=== PATIENT | female | born 1955 | race Caucasian/White ===

== ENCOUNTER 2019-08-14 12:43 | Day surgery (SDC) | payer OTHER ==
[2019-08-13 10:56] VITALS: BMI 21.2
--- NOTE | 2019-08-14 11:33 | HP ---
[facility]ellite [facility] - Chief Complaint Chief Complaint: left hand pain/numbness - Past Medical History Allergies/Adverse Reactions: Allergies Allergy/AdvReac Type Severity Reaction Status Date / Time No Known Allergies Allergy Verified 08/13/19 10:56 - Current Medications Current Medications: Home Medications Medication Instructions Recorded Anastrozole [Arimidex] 1 mg PO DAILY 08/13/19 Doxepin HCl [Silenor] 6 mg PO PRN 08/13/19 Lorazepam [Ativan] 1 mg PO PRN 08/13/19 Satellite Physical Exam - Physical Examination General Appearance: Well Nourished, Well Developed, Alert & Oriented x3 ENT: Clear Lung: Normal air movement Extremities: Other (left hand/elbow, + tinels, + phalens, EMG + cubital tunnel and CTS) Neurological: Intact, Alert, Oriented Satellite Impression/Plan - Impression/Plan Impression: left CTS, cubital tunnel syndrome Operative Procedure: left ctr, ulna nerve transposition Date to be Performed: 08/14/19
[2019-08-14] MEDS ORDERED: ceFAZolin SODIUM 1 GM VIAL IVPB ONE (14:10)
[2019-08-14] MEDS ORDERED: MIDAZOLAM HCL 2 MG/2 ML SINGLE DOSE VIAL ONE (14:15)
[2019-08-14] MEDS ORDERED: PROPOFOL 20 ML ONE ×2 (15:00)
--- NOTE | 2019-08-14 15:38 | OP ---
Operative Note - Note: Operative Date: 08/14/19 ([facility]) Pre-Operative Diagnosis: left cts, cubital tunnel syndrome Operation: left ctr, tenosynovectomy, subcutaneous ulna nerve transposition Post-Operative Diagnosis: Same as Pre-op Surgeon: Ruben Lujan Shooter Helper: Juan Curry Anesthesia: General, Local Specimens Removed: tenosynovium Estimated Blood Loss (mls): 0 (tourniquet)
[2019-08-14] MEDS ORDERED: ONDANSETRON 4 MG/2 ML VIAL IVPUSH PRN (15:39)
[2019-08-14] MEDS ORDERED: oxyCODONE HCL 5 MG TABLET PO PRN (15:39)
[2019-08-14] MEDS ORDERED: LACTATED RINGERS SOLUTION 1,000 ML IV SCH (15:45)
--- NOTE | 2019-08-14 16:17 | SPEC ---
DATE OF OPERATION: 08/14/2019 PREOPERATIVE DIAGNOSIS: Severe end-stage left cubital tunnel syndrome and mild carpal tunnel syndrome. POSTOPERATIVE DIAGNOSIS: Severe end-stage left cubital tunnel syndrome and mild carpal tunnel syndrome. SURGEON: Charles Dean MD SENIOR PLANNER: TRENT Bruce PROCEDURE: Left subcutaneous ulnar nerve transposition, carpal tunnel release, and tenosynovectomy. ANESTHESIA: Alma Paz, LEENAN, deep MAC anesthesia, local injection of 20 mL 0.5% Marcaine, 1% lidocaine mix. DRAINS: None. COMPLICATIONS: None. SPECIMENS: Tenosynovium, left wrist. ESTIMATED BLOOD LOSS: None. BLOOD GIVEN: None. FLUID REPLACEMENT: 1000 mL Plasma-Lyte. INDICATION FOR PROCEDURE: This patient is a 64-year-old female with a preoperative diagnosis of severe end-stage cubital tunnel syndrome and mild left carpal tunnel syndrome. After understanding the potential risks, complications, alternatives, and benefits to surgery versus nonsurgical treatment, the patient elected to undergo this procedure. She understands she will not get complete relief of her symptoms. She will still have some continuation of some of her symptoms including numbness, weakness, atrophy, tingling, pins and needles, etc. DESCRIPTION OF PROCEDURE: The patient was brought to the operating room, peripheral IV placed and intravenous sedation was given. One gram of intravenous Ancef was given. MAC anesthesia was induced. A tourniquet was applied to the left upper arm and the left upper extremity was prepped and draped in sterile fashion. The entire case was done under 3.8 loupe magnification. A marking pen was utilized to jessi out a longitudinal incision in an already existing skin crease. Twenty mL of 0.5% Marcaine mixed with 1% Lidocaine was injected in and around the surgical incision. The left upper extremity was elevated, exsanguinated with an Esmarch bandage and the tourniquet inflated to 250 mmHg. A No. 15 scalpel blade was utilized to cut down through the skin. Subcutaneous hemostasis was achieved with the bipolar cautery. Dissection was done through the superficial palmar fascia. Self-retaining retractors were placed into the wound. Under direct visualization, the transverse carpal ligament was transected with a No. 15 scalpel blade, exposing the median nerve and the contents of the carpal tunnel. The distal and proximal extents of the release were completed with a Littler scissor and checked with irrigation and my small finger. They were seen to be complete. Limited dissection was done on the radial side of the median nerve and more extensive dissection was done on the ulnar side of the median nerve. The patients nerve was seen to be quite compressed by epineurium and therefore a limited epineurotomy was performed. A Ragnell retractor was used to gently retract the median nerve in a radial direction. The patient had a lot of tenosynovitis and therefore a tenosynovectomy was performed off all 9 flexor tendons. This was passed off the field as tenosynovium left wrist. The floor of the carpal tunnel was checked. There were no abnormal masses or ganglion cysts. The area was copiously irrigated and washed out and closure begun. Undyed 4-0 Vicryl was used to close the deep dermal layer. Final skin reapproximation was done with horizontal mattress 4-0 nylon sutures. The area was then washed and dried, covered with Xeroform, 4 x 4s, fluffs between the fingers, Webril and a 4-inch plaster roll was utilized to make a volar splint, which was then wrapped with Joseluis and Coban. There were no complications during the case. That took 15 minutes. The entire case was done under 3.8 loupe magnification. A marking pen was utilized to jessi out a longitudinal incision in an already existing skin crease. Twenty mL of 0.5% Marcaine mixed with 1% Lidocaine were injected in and around the surgical incision. The right upper extremity was elevated, exsanguinated with an Esmarch bandage, and the tourniquet inflated to 250 mmHg. A No. 15 scalpel blade was utilized to cut down through the skin. Subcutaneous hemostasis was achieved with the bipolar cautery. Dissection was done through the superficial palmar fascia. Self-retaining retractors were placed into the wound. Under direct visualization, the transverse carpal ligament was transected with a No. 15 scalpel blade, exposing the median nerve and the contents of the carpal tunnel. The distal and proximal extents of the release were completed with a Littler scissor and checked with irrigation and my small finger. They were seen to be complete. Limited dissection was done on the radial side of the median nerve and more extensive dissection was done on the ulnar side of the median nerve. The patients nerve was seen to be quite compressed by epineurium and therefore, a limited epineurotomy was performed. A Ragnell retractor was used to gently retract the median nerve in a radial direction. The patient had a lot of tenosynovitis and therefore, a tenosynovectomy was performed off all 9 flexor tendons. This was passed off the field as tenosynovium, right wrist. The floor of the carpal tunnel was checked. There were no abnormal masses or ganglion cysts. The area was copiously irrigated and washed out and closure begun. Undyed 4-0 Vicryl was used to close the deep dermal layer. Final skin reapproximation was done with horizontal mattress 4-0 nylon sutures. The area was then washed and dried, covered with Xeroform, 4 x 4s, Fluffs between the fingers, Webril and a 4-inch plaster roll was utilized to make a volar splint, which was then wrapped with Joseluis and Coban. A curvilinear incision was marked out over the medial aspect of the medial epicondyle of the right elbow. Next, a mixture of 10 mL of 0.50% Marcaine and 1% lidocaine was injected in and around the surgical incision. The incision was made with a No. 15 scalpel blade. Subcutaneous hemostasis was achieved with the bipolar cautery. Dissection was done with the Metzenbaum scissors, cauterizing along the way. Weitlaner retractors were placed into the wound. Dissection was done down through the fat layer, cauterizing vessels, exposing the medial epicondyle. The anterior flap was raised underneath the adipose layer for later transposition. The medial epicondyle was exposed. First, the ulnar nerve was identified more proximally around the triceps. A circumferential dissection was done and a Ez drain was placed around it. Next, in a methodical fashion, circumferential dissection was done moving more distally, freeing up the ulnar nerve from surrounding soft tissue. The roof of the cubital tunnel was released. This was quite tight and the Campo's ligament between the two heads of the FCU muscle was also identified and opened. There was one point of compression around the medial intramuscular septum. This was also decompressed with a No. 15 scalpel blade. I transposed the nerve. There were no points of compression. I completed the release distally and proximally with my index finger. I again transposed it. It looked good distally and proximally with no points of compression and the pressure was released. The area was copiously irrigated and washed out. Next, using 2-0 Vicryl suture, I tacked down the deep adipose layer to the medial epicondyle with the ulnar nerve transposed anterior to the axis of rotation of the medial epicondyle. I was able to floss the ulnar nerve. There were no points of compression. I then put in other 2-0 Vicryl sutures to hold the transposition position. It was checked along the way. It looked good. The deep adipose layer was closed with 2-0 Vicryl. The deep dermal layer was closed with 4-0 undyed Vicryl. The skin was reapproximated with a running subcuticular 4-0 Biosyn stitch. The area was then washed and dried, covered with Steri-Strips, 4 x 4's and Webril. A 5-inch Ortho-Glass posterior splint was applied, wrapped with Joseluis and Homar bandages. The tourniquet was taken down after a total tourniquet time of about 50 minutes. There were no complications during the case. The patient tolerated the procedure quite well and was brought to the ambulatory recovery room in stable condition. CHARLES DEAN M.D. [id number]
[2019-08-14 16:30] VITALS: TEMP 98.1
[2019-08-14] MEDS ORDERED: oxyCODONE HCL 5 MG TABLET ONE (16:35)
[2019-08-14] MEDS ORDERED: oxyCODONE HCL 5 MG TABLET PO ONE (16:40)
[2019-08-14 17:23] VITALS: BP 146/76; PULSE 78
--- NOTE | 2019-08-17 18:59 | PATH ---
Surgical Pathology Report Patient Name: NATASHA LAGUNAS [facility]. Rec. #: [id number] /Age/Gender: 1955 (Age: 64) / F Account: [id number] Location: [facility] SURGICAL Taken: 08/14/2019 Received: 08/15/2019 Reported: 08/17/2019 Physicians: Ruben Lujan M.D. Specimen(s) Received LEFT HAND Clinical History Carpal tunnel syndrome left hand Final Diagnosis TENOSYNOVIUM, LEFT HAND, EXCISION: TENOSYNOVIAL TISSUE WITH FOCAL FIBROSIS. Electronically Signed Victor Manuel Preston M.D. Gross Description Received in formalin labeled "tenosynovium left hand," is a 2.0 x 1.8 x 0.3 cm aggregate of benitez-yellow portions of soft tissue, consistent with tenosynovium. The specimen is submitted in toto in one cassette. /08/15/201908/15/2019
== END 2019-08-14 17:10 | disposition home or self-care (01) ==
LOC: JASU-SURG 12:43
PROVIDERS: ATTEND Orthopaedic Surgery
PROC: 01N50ZZ Release Median Nerve, Open Approach (ICD-10-PCS; principal; 2019-08-14 14:30)
PROC: 01S40ZZ Reposition Ulnar Nerve, Open Approach (ICD-10-PCS; 2019-08-14 14:30)
DX: G56.02 Carpal tunnel syndrome, left upper limb (principal); G56.22 Lesion of ulnar nerve, left upper limb
CPT/HCPCS: 88304-TC; 94760